=== PATIENT | male | born 1975 ===

== ENCOUNTER 2020-11-26 10:24 | Day surgery (SDC) | payer OTHER ==
[~2020-11-26 10:24] MED LIST: ZESTRIL20 MG PO
== END 2020-11-27 03:20 | disposition home or self-care (01) ==
LOC: CIR.AMB 10:24
PROVIDERS: ATTEND Colon & Rectal Surgery
DX: K64.8 Other hemorrhoids (principal); K64.4 Residual hemorrhoidal skin tags; Z20.822 Contact with and (suspected) exposure to COVID-19